=== PATIENT | female | born 2000 | race Caucasian/White ===

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

== ENCOUNTER 2021-09-23 19:04 | Emergency (ER) | payer OTHER ==
[2021-09-23 19:40] VITALS: BP 129/92; PULSE 109; TEMP 98.1; BMI 20.2
[2021-09-23 22:37] LABS: BASO % 0.6 % (0-2.0); EOS % 10.4 % (0-4.5); HEMOGLOBIN 12.9 GM/dL (10.7-15.3); MCH 29.3 pg (25.7-33.7); MCHC 34.8 g/dl (32.0-36.0); MEAN CELL VOLUME 84.2 fl (80-96); MEAN PLT VOLUME 6.8 fl (7.5-11.1); MONO % 10.3 % (3.8-10.2); NEUT % 34.7 % (42.8-82.8); PLATELET COUNT 251 10^3/uL (134-434); WHITE BLOOD COUNT 5.5 K/mm3 (4.0-10.0)
[2021-09-23 22:40] LABS: URINE APPEARANCE CLOUDY; URINE BILIRUBIN NEGATIVE (NEGATIVE); URINE COLOR YELLOW; URINE GLUCOSE (UA) NEGATIVE (NEGATIVE); URINE KETONE NEGATIVE (NEGATIVE); URINE LEUK ESTERASE NEGATIVE (NEGATIVE); URINE NITRITE NEGATIVE (NEGATIVE); URINE PROTEIN NEGATIVE (NEGATIVE)
[2021-09-23 22:42] LABS: HCG,QUALITATIVE URINE Negative
[2021-09-23 22:46] LABS: INR 1.16 (0.83-1.09); PROTHROMBIN TIME (PATIENT) 13.6 SEC (9.7-13.0)
[2021-09-23 22:59] LABS: CALCIUM 8.7 mg/dL (8.5-10.1)
[2021-09-23 23:00] LABS: ALBUMIN 3.8 g/dl (3.4-5.0)
[2021-09-23 23:03] LABS: CREATININE 0.6 mg/dL (0.55-1.3)
[2021-09-23 23:04] LABS: BILIRUBIN,TOTAL 0.2 mg/dL (0.2-1)
[2021-09-23 23:05] LABS: TOT PROT 7.1 g/dl (6.4-8.2)
[2021-09-23] MEDS ORDERED: MECLIZINE HCL 12.5 MG TABLET PO ONE (23:23)
[2021-09-23] MEDS ORDERED: MECLIZINE HCL 12.5 MG TABLET ONE (23:29)
[2021-09-25 14:10] LABS: SARS-CoV-2 NAA Not Detected (Not Detected)
== END 2021-09-23 23:49 | disposition home or self-care (01) ==
LOC: JER 19:04
DX: R42 Dizziness and giddiness (principal)
CPT/HCPCS: 36415; 80053; 81003; 84703; 85025; 85610; 86850; 86900; 86901; 99283-25; C9803; U0003; U0005

== ENCOUNTER 2021-12-17 14:39 | Emergency (ER) | payer OTHER ==
[2021-12-17 14:50] VITALS: BP 100/62; PULSE 98; TEMP 98; BMI 22.0
== END 2021-12-17 15:36 | disposition home or self-care (01) ==
LOC: JERFT 14:39
DX: Z76.0 Encounter for issue of repeat prescription (principal)
CPT/HCPCS: 73060-TC-LT-FY; 99281-25